=== PATIENT | female | born 1995 | race Caucasian/White ===

== ENCOUNTER 2016-05-03 22:40 | Emergency (ER) | payer SELFPAY ==
[~2016-05-03] VITALS: Ht 149.9 cm; Wt 78.0 kg
[2016-05-03 22:58] VITALS: BP 106/77
[2016-05-03] MEDS ORDERED: AZO95TAB PO (23:07)
[2016-05-03] MEDS ORDERED: bactrim PO (23:07)
== END 2016-05-04 00:39 | disposition left against medical advice (07) ==
LOC: M ED 05-04 00:36
DX: Z53.21 Procedure and treatment not carried out due to patient leaving prior to being seen by health care provider (principal)

== ENCOUNTER 2016-07-19 17:14 | Emergency (ER) | payer BC, SELFPAY ==
[~2016-07-19] VITALS: Ht 154.9 cm; Wt 81.6 kg
[~2016-07-19 17:14] MED LIST: AZO95TAB PO; bactrim PO
[2016-07-19] MEDS ORDERED: NS 1,000 ML IV ONE (18:15)
[2016-07-19] MEDS ORDERED: ACETAMINOPHEN TAB 650MG DOSE (2X325MG) PO ONE (18:15)
--- NOTE | 2016-07-19 18:28 | ED PDOC ---
Post-Departure Follow-Up Patient presents to the ED for evaluation of left flank pain that has been ongoing x1 week. The patient denies any recent back injury, history of kidney stones; states it doesn't feel like a UTI. She has also recently discovered that she is (she had 8 positive home tests) but denies any abdominal pain, vaginal bleeding or purulent drainage. See the T-sheet for the remainder of her H&P and ROS. CBC, BMP, quant Hcg, UA, Renal & transvaginal OB US ordered to further evaluation. Saline lock with NS bolus and Tylenol PO ordered for pain SAVI GUTIERREZ Jul 19, 2016 18:28
[2016-07-19 19:05] LABS: BASO % 0.3 % (0.0-1.0); EOS # 0.2 K/mm3 (0.0-0.50); EOS % 1.8 % (0.0-3.0); LARGE UNSTAINED CELL # 0.2 K/mm3 (0.0-0.4); LARGE UNSTAINED CELL % 1.5 % (0.0-4.0); LYMPH # 2.6 K/mm3 (1.5-6.5); LYMPH % 24.3 % (24.0-44.0); MEAN CORPUSCULAR HEMOGLOBIN 29.5 pg (27.0-33.0); MEAN CORPUSCULAR HGB CONC 33.7 g/dl (32.0-36.5); MEAN CORPUSCULAR VOLUME 87.6 fl (80.0-96.0); MONO # 0.6 K/mm3 (0.0-0.8); MONO % 5.7 % (0.0-5.0); NEUTROPHILS # 6.7 K/mm3 (1.8-7.7); NEUTROPHILS % 66.4 % (36.0-66.0); PLATELET COUNT, AUTOMATED 298 k/mm3 (150-450); RED CELL DISTRIBUTION WIDTH 12.9 % (11.5-14.5)
--- NOTE | 2016-07-19 19:20 | REPUSA ---
CLINICAL HISTORY: Flank pain. TECHNIQUE: Realtime sonographic images were obtained in multiple projections. COMMENTS: The uterus measures 8.5 x 5.1 x 6.1 cm. The right ovary measures 4.5 x 2.0 x 2.9 cm. The left ovary measures 2.5 x 1.4 x 2.9 cm. There is a corpus luteum cyst of the right ovary measuring1.9 x 1.9 x 1.8 cm. RI on the right is .37 and on the left is .55. IMPRESSION: No IUP seen. Early IUP versus missed . Cannot rule out ectopic . Consider follow- up study in 4-7 days or as clinically warranted. Thank you for your kind referral of this patient. We appreciate the opportunity to participate in th is patient's care.
[2016-07-19 19:29] LABS: ANION GAP 5 MEQ/L (8-16); BLOOD UREA NITROGEN 10 MG/DL (7-18); CALCIUM LEVEL 8.8 MG/DL (8.5-10.1); CARBON DIOXIDE LEVEL 28 MEQ/L (21-32); CHLORIDE LEVEL 104 MEQ/L (98-107); CREATININE FOR GFR 0.73 MG/DL (0.55-1.02); GLUCOSE, FASTING 90 MG/DL (70-105); POTASSIUM SERUM 3.8 MEQ/L (3.5-5.1); SODIUM LEVEL 137 MEQ/L (136-145)
--- NOTE | 2016-07-19 19:40 | REPUSA ---
HISTORY: Flank pain. TECHNIQUE: Realtime sonographic images were obtained in multiple projections. FINDINGS: The right kidney measures 9.5 x 4.7 x 5.3 cm and the left kidney measures 9.9 x 6.0 x 5.2 cm. Both k idneys are free of hydronephrosis. There is no evidence of solid or cystic mass. There is no perine phric fluid. There is no renal calculus. IMPRESSION: Normal study. Thank you for your kind referral of this patient. We appreciate the opportunity to participate in th is patient's care.
--- NOTE | 2016-07-19 19:59 | ED PDOC ---
Post-Departure Follow-Up Discussed test results and plan for discharge with the patient, including prescription for UTI and worrisome signs to return to the ED for. Questions answered. Patient states understanding to the instructions. SAVI GUTIERREZ. [facility] Jul 19, 2016 19:58
[2016-07-19] MEDS ORDERED: NITROFURANTOIN (MACROBID) 100 MG CAP PO ONE (20:00)
[2016-07-19] MEDS ORDERED: MACR100C3 PO (20:02)
[2016-07-19 20:07] VITALS: BP 128/75
== END 2016-07-19 20:12 | disposition home or self-care (01) ==
LOC: M ED 19:28
DX: N39.0 Urinary tract infection, site not specified (principal); Z32.01 Encounter for pregnancy test, result positive; R11.2 Nausea with vomiting, unspecified; Z88.1 Allergy status to other antibiotic agents